=== PATIENT | female | born 1995 | race Caucasian/White ===

== ENCOUNTER → 2016-11-29 19:30 | Observation (INO) ==
[2016-11-29 17:36] LABS: Bilirubin,Urine Negative (Negative); Blood,Urine Small (Negative); Clarity,Urine Cloudy (Clear); Color,Urine Yellow (Yellow); Glucose,Urine (UA) Normal (Normal); Ketones,Urine Negative (Negative); Leukocyte Esterase,Urine Trace (Negative); Nitrite,Urine Negative (Negative); Protein,Urine 30 mg/dL (Neg-Trace); Specific Gravity,Urine > 1.030 (1.010-1.025); Urobilinogen,Urine Normal (Normal)
[2016-11-29 17:38] LABS: Bacteria,Urine Moderate per hpf (None-Few); Hyaline Casts,Urine Few per lpf (None-Few); RBC,Urine 0-3 per hpf (0-3); Squamous Epithelial Cell,Urine Many per lpf (None-Few)
[2016-11-29 17:47] LABS: Calcium Oxalate Crystals,Urine Present
--- NOTE | 2016-11-29 18:34 | OB/GYN Progress Note ---
Date of Encounter: 11/29/16 Time of Encounter: 18:33 - Assessment and Plan (1) 21 weeks gestation of Current Visit: Yes Status: Acute (2) UTI in Current Visit: Yes Status: Acute UA suspicious for UTI, will reflex to culture, and given patient symptoms will start macrobid BID for 5 days. Vaginal exam shows closed cervix. Qualifiers: Trimester: second trimester Qualified Code(s): O23.42 - Unspecified infection of urinary tract in , second trimester Subjective - Subjective Principal diagnosis: Abdominal Pain Interval history: 21 yo F at 21 weeks and 1 day presenting for lower abdominal pain. Pt states she started having some constant lower abdominal pain from 6am this morning. Pt states she initially thought contractions, but the pain was constant and did not let up. Pt states she has had some urgency today with urination on arrival to triage. Pain has improved this evening. Reports good movement, denies vaginal bleeding, leaking of fluid. Antepartum ROS: new complaints, movement normal, no loss of fluid, no vaginal bleeding, no contractions Objective - Vital Signs Vital Signs: Intake and Output 11/29/16 11/29/16 11/29/16 07:59 15:59 23:59 Other: Weight 75 kg Patient Weight 11/29/16 23:59 Weight 75 kg - Exam FHR: auscultation normal FHR comments: FHT appropriate for gestational age. Auscultation: bilateral: normal Abdomen: Present: normal appearance, soft, gravid Uterus: Present: normal - Labs Labs: Abnormal lab results Urine Clarity Cloudy (Clear) A 11/29/16 17:23 Ur Specific [place] > 1.030 (1.010-1.025) H 11/29/16 17:23 Urine Protein 30 mg/dL (Neg-Trace) H 11/29/16 17:23 Urine Blood Small (Negative) H 11/29/16 17:23 Ur Leukocyte Esterase Trace (Negative) H 11/29/16 17:23 Urine Microscopic WBC 5-15 per hpf (0-3) H 11/29/16 17:23 Ur Squamous Epith Cells Many per lpf (None-Few) H 11/29/16 17:23 Urine Bacteria Moderate per hpf (None-Few) H 11/29/16 17:23 Ur Culture Indicated? YES (NO) A 11/29/16 17:23
== END | disposition home or self-care (01) ==
LOC: 1NENULAB
PROVIDERS: ADMIT Student in an Organized Health Care Education/Training Program; ATTEND Student in an Organized Health Care Education/Training Program

== ENCOUNTER 2017-03-27 15:50 | Inpatient (IN) ==
[2017-03-27] MEDS ORDERED: Ondansetron 4 MG/2 ML VIAL IVP PRN (16:46)
[2017-03-27] MEDS ORDERED: Metoclopramide 10 MG/2 ML VIAL IVP PRN (16:46)
[2017-03-27] MEDS ORDERED: *HR* Nalbuphine 20 MG/ML AMPUL IVP PRN (16:46)
[2017-03-27] MEDS ORDERED: Famotidine 20 MG/2 ML VIAL IVP PRN (16:46)
[2017-03-27] MEDS ORDERED: Naloxone 0.4 MG/ML INJ IVP PRN (16:46)
[2017-03-27] MEDS ORDERED: Ringers Solution, Lactated 1,000 ML IVC SCH (17:00)
[2017-03-27 17:02] LABS: Basophils # 0.1 K/mcL (0.0-0.2); Basophils % 0.3 %; Eosinophils # 0.1 K/mcL (0.0-0.6); Eosinophils % 0.5 %; Hematocrit 37.3 % (35.3-44.9); Immature Granulocytes % 1.6 % (0-4); Lymphocytes # 3.8 K/mcL (0.6-4.6); Lymphocytes % 21.9 %; Mean Corpuscular HGB Conc 32.2 g/dL (31.6-35.5); Mean Corpuscular Hemoglobin 27.5 pg (28.0-33.3); Mean Corpuscular Volume 85.4 fL (83.0-100.0); Mean Platelet Volume 9.9 fL (9.4-12.4); Monocytes # 0.8 K/mcL (0.0-1.3); Monocytes % 4.4 %; Neutrophils # 12.3 K/mcL (1.6-8.9); Platelet Count 331 K/mcL (140-400); Red Blood Count 4.37 M/mcL (3.82-4.97); Red Cell Distribution Width 13.7 % (11.5-14.5); Segmented Neutrophils % 71.3 %
--- NOTE | 2017-03-27 17:06 | OB/GYN History & Physical ---
Date of Encounter: 03/27/17 Time of Encounter: 16:59 Assessment and Plan (1) 38 weeks gestation of Current visit: Yes Status: Acute Admit for induction of labor (2) IUGR (intrauterine growth restriction) affecting care of mother Current visit: Yes Status: Acute Admitted for induction of labor Ultrasound today measured fetus at 35w2d, 5#10oz, 12%, grade 3 placenta Qualifiers: Fetus number: single or unspecified fetus Trimester: third trimester Qualified Code(s): O36.5930 - Maternal care for other known or suspected poor growth, third trimester, not applicable or unspecified (3) Asthma affecting , antepartum Current visit: Yes Status: Acute Monitor SPO2 prn Currently asymptomatic History of Present Illness Chief complaint: Induction of labor for IUGR HPI: Ms. Zee is a 21 year old female at 38w0d sent from the office for induction of labor due to IUGR. Ultrasound measurement today 35w, ROSSANA 8.1, grade 3 placenta, 5#10oz., 12%. Decision made by Dr. Armstrong for induction of labor. Dr. Vasquez consulted and agrees with medical need for induction. Patient reports positive movement today, denies leakage of fluid and vaginal bleeding. Plan of care for PO Cytotec and possible oropeza bulb induction discussed and patient agrees to proceed. Blood Type B+ HbSAG negative GBS negative Varicella and Rubella Immune T. Pallidum negative Past Med Surg Social Fam HX - Past Medical History Source: patient Medical history: asthma (Was admitted for 9 days d/t asthma exacerbation) Psychiatric history: no psych history - Past Surgical History Surgical History: other (T&A at 4 years of age) - Social History Smoking Status: Current every day smoker (States she quit smoking when she was admitted for asthma treatment) Smokeless Tobacco Status: No Alcohol use: rarely Drug use: none Current living situation: Home - Independent Activity Level: Independent ambulation Recent Out of Country Travel Within the Last 8 Weeks: No Exposure or Possible Exposure to Illness During Travel: No - Family History Paternal Grandfather Name: jaylin zee Living Status: Hx Family Cardiac Disorders: No Hx Family Respiratory Disorders: No Hx Family Cancer: No Hx Family GI Disorders: No Hx Family Genitourinary Disorders: No Hx Family Endocrine Disorder: No Hx Family Musculoskeletal Disorders: No Hx Family Neuromuscular Disorders: No Hx Family Neurologic Disorders: No Hx Family HEENT Disorders: No Hx Family Autoimmune Disorders: No Hx Family Reproductive Disorders: No Hx Family Psychosocial Disorders: No Hx Family Medical Disorders: No Obstetrical History - Pregnancies : 2 Para: 1 Term: 1 : 0 Ab's: 0 Livin Medications and Allergies Dha 1 tab PO DAILY 12/28/14 [History] Ferrous Sulfate 325 mg PO DAILY 03/27/17 [History] 3 Allergy/AdvReac Type Severity Reaction Status Date / Time No Known Allergies Allergy Verified 03/11/17 02:45 Review of System OB All systems PM: reviewed and no additional remarkable complaints except as stated - Constitutional Constitutional ROS IM: no anorexia - Gastrointestinal Gastrointestinal: no constipation, no diarrhea, no loose stools, no vomiting - Genitourinary Genitourinary: as per HPI Exam - Constitutional Constitutional: well developed, well nourished, no acute distress, average body habitus - Neck Neck exam: full ROM, normal inspection - Lungs Respiratory exam: CTAB - Cardiovascular Cardiovascular exam: RRR, +S1, +S2 - Abdomen Abdomen: Present: bowel sounds normal, gravid, non tender - Extremities Extremities exam: full ROM, normal capillary refill, normal inspection, warm - Vagina Vagina: Present: normal moisture. Absent: discharge - Uterus Uterus exam: Present: normal size, normal contour Results Result Diagrams: 03/27/17 16:47 All other labs normal. - VTE Reasons for not Prescribing Prophylaxis: Treatment not Indicated - Low risk for VTE
[2017-03-27 17:35] LABS: Amphetamine Screen,Urine Negative ng/mL (Cutoff=1000); Barbiturate Screen,Urine Negative ng/mL (Cutoff=200); Benzodiazepines Screen,Urine Negative ng/mL (Cutoff=200); Cannabinoid Screen,Urine Negative ng/mL (Cutoff = 50); Cocaine Screen,Urine Negative ng/mL (Cutoff= 300); Opiate Screen,Urine Negative ng/mL (Cutoff=300); Phencyclidine Screen,Urine Negative ng/mL (Cutoff=25)
[2017-03-27] MEDS ORDERED: miSOPROStol 25 MCG TABLET PO PRN (17:38)
[2017-03-27] MEDS ORDERED: Penicillin G Potassium 5,000,000 UNIT in D5% in Water 100 ML IVPB ONE (17:38)
[2017-03-27] MEDS ORDERED: miSOPROStol 100 MCG TABLET PO PRN (18:00)
--- NOTE | 2017-03-27 19:51 | Anesthesia Evaluation PreOp ---
Date of Encounter: 03/27/17 Time of Encounter: 19:49 - Past History Planned Operation: AMOS Cardiac History: Denies any Significant Hx Pulmonary History: Asthma (Admitted to [facility] for asthma exacerbation. Admitted on 03/11 and d/c on 03/19. Received prednisone 12day pack. Last dose was 03/26. No recent use of rescue inhalers. No recent issues. No complaints today.) COMMUNICATIONS LEAD History: Denies Any Significant HX Other Medical History: Denies Any Significant HX Anesthesia History: No Prior Anesthetic Complications Alcohol Use: rarely Drug use: none Medications and Allergies Dha 1 tab PO DAILY 12/28/14 [History] Ferrous Sulfate 325 mg PO DAILY 03/27/17 [History] 3 Allergy/AdvReac Type Severity Reaction Status Date / Time No Known Allergies Allergy Verified 03/11/17 02:45 - Meds/Allergy Pre-op Review Medications Reviewed: Yes Allergies Reviewed: Yes Beta Blockers on Current Med List: No Anesthesia Results - Labs 03/27/17 16:47 Anesthesia Exam Height: 1.55m Weight: 81.3kg NPO (# of Hours): 8 Pain Scale: 1 Pain Scale Used: Numeric (1 - 10) - HEENT Pupil (Motor): Pupils equal Mallampati: II Teeth: Normal Oral Opening: Greater than 3 - COMMUNICATIONS LEAD LOC: Oriented COMMUNICATIONS LEAD Motor: Normal RUE, Normal LUE, Normal RLE, Normal LLE, Normal Face COMMUNICATIONS LEAD Sensory: Normal: RUE, LUE, RLE, LLE, Face - Cardiac Rhythm: Regular Murmur: None JVD: No Carotid Bruit: No - Pulmonary Breath Sounds: bilateral Clear Respiratory Effort: Symmetrical Anesthesia Assess/Plan ASA Score: 2 Modified Yash Scale for Level of Consciousness: Cooperative, oriented, and tranquil Anesthetic Plan: General (plan b), Regional (plan a) Autologous Blood: Yes Monitoring Plan: Standard Monitors
[2017-03-27] MEDS ORDERED: Epidural Premix (fent/bupiv) 110 ML EP SCH (20:00)
--- NOTE | 2017-03-27 20:24 | OB Labor Progress Note ---
Date of Encounter: 03/27/17 Time of Encounter: 20:22 Labor Progress Note - Subjective Subjective: Pt has been up on birthing ball. Currently resting in bed with no contraction complaints. Plans epidural for pain management. - Cervix Cervix: 1/70/-3 - Heart Tones Heart Tones: 135 bpm, moderate variability, +15x15 accels, no decels. - [place]: Irregular - Interventions Interventions: SVE Lynn bulb placed in cervix. As balloon was being inflated, inadvertent rupture of membranes, small amount of clear fluid noted. Lynn bulb removed. - Plan Plan: Continue labor management Consider Pitocin 4 hours after Cytotec dose. Anticipate May have epidural when desired.
[2017-03-27] MEDS ORDERED: Penicillin G Potassium 2,500,000 UNIT in D5% in Water 100 ML IVPB SCH (22:00)
[2017-03-27] MEDS ORDERED: Oxytocin 20 units/ LR 1000 mL 20 UNIT/1,000 ML BAG IVC SCH (22:45)
[2017-03-28] MEDS ORDERED: Epidural Premix (fent/bupiv) 110 ML EP ONE (02:07)
--- NOTE | 2017-03-28 02:37 | Anesthesia Procedures ---
Date of Encounter: 03/28/17 Time of Encounter: 02:34 Procedures: Anesthesia - Epidural/Spinal Patient ID/Chart reviewed: Yes Patient examined: Yes OB Eval: Gestational age: 38 OB Eval: : 2 OB Eval: Hx Para: 1 OB Eval: Dilated at (cm): 1 OB Eval: Contractions: Non-stressed pattern Consent Obtained: Yes Supplemental Oxygen: None/Room Air Site Prep: Aseptic Technique, Sterile prep and drape, Povidone-Iodine 1% Patient position: upright Local Anesthetic: Lidocaine 1% Amount of Local Anesthetic used: 3 Touhy Needle Gauge: 18 Touhy Needle Depth (cm): 7 Catheter Depth at Skin (cm): 20 Test Dose (1.5% Lido + Epi): Volume given (mls): 5 Test Dose Result: Negative Loading Dose: Other: 10mls of epidural pharm bag premix solution Loading Dose Administered: Thru Catheter Infusion Med: 0.125% Bupivacaine w/ 2 mcg/ml Fentanyl Infusion Rate (mls/hr): 12 ([id number]) Catheter Secured in Place: Tegaderm, Tape Interspace Used: L3-L4 Loss of Resistance (RYAN): Yes Blood: No CSF: No Paresthesia: No Procedure: pt tolerated procedure well. no complications. vss. fhr stable. see qs for complete vitals. 111/59 hr 77 102/58 hr 78 fhr 130
--- NOTE | 2017-03-28 06:01 | OB/GYN Procedure Note ---
Delivery - Delivery Date: 03/28/17 Provider: Coty Dee ([facility]) Intrapartum events: none Delivery induction: AROM, oxytocin, misoprostol Delivery monitor: external FHT, external uterine Anesthesia: epidural Estimated Blood Loss: 50 - (s) Infant A Delivery Date: 03/28/17 Delivery Time: 05:36 Presentation: vertex Position: EULA Route of delivery: Gender: Female Viability: Viable Pounds: 5 Ounces: 2 Weight Gram: 2335 kg at 1 minute: 8 at 5 mins: 9 Shoulder Dystocia: not encountered Placenta: spontaneous Cord: nuchal cord, 3 umbilical vessels, delivered through nuchal - Repair Episiotomy: none Laceration Description: None - Complications Delivery complications: none Delivery comments: Called to delivery room. vertex at +4 station. Under maternal effort, spontaneous delivery of viable 5# 2oz female "Kenlee" over intact perineum. Nuchal cord noted after delivery of the head, delivered through. to maternal abdomen, apgars 8&9. Cord clamped and cut after pulsation ceased. Spontaneous delivery of intact placenta. EBL 50 mL. Perineum inspected no repair needed. No meconium or shoulder dystocia encountered. Mother and stable in [facility] care for 2 hour recovery. - Disposition Mom disposition: stable in LDR [place] disposition: stable in LDR
[2017-03-28] MEDS ORDERED: Acetaminophen 325 MG TABLET PO PRN (08:49)
[2017-03-28] MEDS ORDERED: Oxytocin 20 units/ LR 1000 mL 20 UNIT/1,000 ML BAG IVC SCH (08:49)
[2017-03-28] MEDS ORDERED: Lanolin 7 G OINT...G. TP PRN (08:49)
[2017-03-28] MEDS ORDERED: Prenatal Vit/FA 1 EACH TABLET PO SCH (09:00)
[2017-03-28] MEDS: Ibuprofen 600 MG TABLET PO PRN ×2 (14:27→20:20)
[2017-03-29] MEDS: Ibuprofen 600 MG TABLET PO PRN ×2 (03:08→08:53)
--- NOTE | 2017-03-29 08:37 | Discharge Summary ---
Date of Encounter: 03/29/17 Time of Encounter: 08:35 - Discharge Diagnosis (1) Spontaneous vaginal delivery Priority: Primary Status: Acute Comments: Patient s/p with no laceration or repair of perineum resting comfortably delivered at 38 weeks secondary to IOL for IUGR and grade 3 placenta. -Patient supplementing and pumping. -Will give prescription for breast pump and lanolin. -Stable for discharge home today. (2) Lactating mother Priority: Secondary Status: Acute Comments: Lanolin and education given. - Discharge Medications Prescriptions: Ibuprofen [Motrin] 600 mg PO Q6HR PRN #60 tablet PRN Reason: Cramping Breast Pump [BREAST PUMP] 1 each .ROUTE AD #1 each Ferrous Sulfate 325 mg PO DAILY #60 tablet Home Medications: Dha 1 tab PO DAILY 12/28/14 [History] Ferrous Sulfate 325 mg PO DAILY 03/27/17 [History] Breast Pump [BREAST PUMP] 1 each .ROUTE AD #1 each 03/29/17 [Rx] Ferrous Sulfate 325 mg PO DAILY #60 tablet 03/29/17 [Rx] Ibuprofen [Motrin] 600 mg PO Q6HR PRN #60 tablet 03/29/17 [Rx] Lanolin [Lansinoh] 1 appl TP TID PRN oint...g. 03/29/17 [Rx] Allergies/Adverse Reactions: 3 Allergy/AdvReac Type Severity Reaction Status Date / Time No Known Allergies Allergy Verified 03/11/17 02:45 Data Procedures and tests throughout hospitalization: Laboratory Tests 03/27/17 03/27/17 16:47 16:47 WBC 17.2 H RBC 4.37 Hgb 12.0 Hct 37.3 MCV 85.4 MCH 27.5 L MCHC 32.2 RDW 13.7 Plt Count 331 MPV 9.9 Immature Gran % 1.6 Seg Neutrophils % 71.3 Lymphocytes % 21.9 Monocytes % 4.4 Eosinophils % 0.5 Basophils % 0.3 Neutrophils # 12.3 H Lymphocytes # 3.8 Monocytes # 0.8 Eosinophils # 0.1 Basophils # 0.1 Urine Opiates Screen Negative Ur Barbiturates Screen Negative Ur Phencyclidine Scrn Negative Ur Amphetamines Screen Negative U Benzodiazepines Scrn Negative Urine Cocaine Screen Negative U Marijuana (THC) Screen Negative Date of admission: 03/27/17 15:50 Primary care physician: PCP NONE Consults: 03/28/17 08:49 Consult to Airport Guide [CONS] Routine Comment: Vaginal delivery, consult needed Discharging clinician: Carlos Rivera Anticipated date of discharge: 03/29/17 - Patient Status Disposition: Home, Self-Care Condition: Good Functional capacity at discharge: independent ambulation Overall status at discharge: patient is progressing back to baseline - Discharge Instructions Follow Up With: NONE,PCP [Primary Care Provider] - Ronan Vasquez MD [Partnered Physician] - - Diet and Activity Activity: increase activity as tolerated Diet: advance to your usual diet Hospital Course Reason for admission: induction of labor Delivery: Episiotomy: none Laceration: none complications: none Discharge diagnosis: IUP at term delivered baby: female Hospital course: Ms. Zee is a 21 yo female who gave to a viable 5 pound 2 ounce baby girl via at 38 weeks after an IOL due to a grade 3 placenta and IUGR. Patient was admitted to [facility] during pregancy for hypoxia. She states she is going to be supplementing her baby with formula as she wishes to give her extra calories secondary to complications during her . was uncomplicated with no repair to the perineum. This morning, patient is resting comfortably with no complaints. She reports minimal lochia, no clots, and no difficulty with urination, defecation, or ambulation. Time Attestation: Total time spent providing and/or coordinating discharge services: Time Spent: Less than 30 minutes Exam - Constitutional Vitals: Temp Pulse Resp BP Pulse Ox 97.6 F 101 18 104/69 97 03/29/17 06:07 03/29/17 06:07 03/29/17 06:07 03/29/17 06:07 03/29/17 06:07 General appearance IM: A&O X 3, morbidly obese - Respiratory Respiratory exam: Present: CTAB - Cardiovascular Cardiovascular exam IM: Present: RRR, +S1, +S2 - GI/Abdominal GI/Abdominal exam IM: soft, no peritoneal signs - Uterine Tone: Firm Uterus Position: At Umbilicus, Midline - Extremities Exam Extremities exam IM: Present: normal inspection, pedal edema (mild +1 bilaterally), radial pulses palpable and symmetrical. Absent: calf tenderness - Neurological Exam Neurological exam: normal gait
[2017-03-29 08:49] VITALS: BP 112/72
== END 2017-03-29 12:40 | disposition home or self-care (01) | DRG 560 ==
LOC: 1NENULAB 15:50 → 1NENUOBS 03-28 08:29
PROVIDERS: ADMIT Obstetrics & Gynecology; ATTEND Obstetrics & Gynecology